=== PATIENT | male | born 1955 | race Caucasian/White ===

== ENCOUNTER → 2023-11-25 08:43 | Outpatient (REF) | payer MEDICARE, OTHER, SELFPAY | LOC: RAD 08:43 | PROVIDERS: ATTENDING PHYSICIAN Internal Medicine Hematology & Oncology; FAMILY PHYSICIAN Internal Medicine | DX: I26.99 Other pulmonary embolism without acute cor pulmonale (principal); C20 Malignant neoplasm of rectum; D64.81 Anemia due to antineoplastic chemotherapy | CPT/HCPCS: 71260; 74177; Q9967 ==

== ENCOUNTER → 2024-02-18 15:49 | Outpatient (REF) | payer MEDICARE, OTHER, SELFPAY ==
[2024-02-18 11:05] LABS: Iron 124 ug/dl (49-181)
[2024-02-18 11:15] LABS: Percent Saturation 44 % (20-50); Total Iron Binding Capacity 279 ug/dl (261-462)
[2024-02-18 12:13] LABS: CEA 2.36 ng/ml
== END ==
LOC: OIDL 15:49
PROVIDERS: ATTENDING PHYSICIAN Internal Medicine Hematology & Oncology
DX: I26.99 Other pulmonary embolism without acute cor pulmonale (principal); C20 Malignant neoplasm of rectum
CPT/HCPCS: 82378; 82728; 83540; 83550

== ENCOUNTER 2024-03-04 07:38 | Outpatient (RCR) | payer MEDICARE, OTHER, SELFPAY ==
[2024-03-04] VITALS (7 sets, daily range): BP systolic 125–139; BP diastolic 72–81
== END 2024-03-14 23:59 | disposition home or self-care (01) ==
LOC: OID 07:38
PROVIDERS: ATTENDING PHYSICIAN Internal Medicine Hematology & Oncology; FAMILY PHYSICIAN Internal Medicine
DX: I26.99 Other pulmonary embolism without acute cor pulmonale (principal); Z79.01 Long term (current) use of anticoagulants
CPT/HCPCS: 36430; 86850; 86900; 86901; 86920; P9016

== ENCOUNTER → 2024-03-24 11:24 | Outpatient (REF) | payer MEDICARE, OTHER, SELFPAY | LOC: RAD 11:24 | PROVIDERS: ATTENDING PHYSICIAN Nurse Practitioner Adult Health; FAMILY PHYSICIAN Internal Medicine; REFERRING PHYSICIAN Internal Medicine Hematology & Oncology | DX: D64.81 Anemia due to antineoplastic chemotherapy (principal); C20 Malignant neoplasm of rectum; I26.99 Other pulmonary embolism without acute cor pulmonale | CPT/HCPCS: 71260; 74177; Q9967 ==

== ENCOUNTER → 2024-04-28 16:03 | Outpatient (REF) | payer MEDICARE, OTHER, SELFPAY ==
[2024-04-28 16:02] LABS: Iron 117 ug/dl (49-181)
[2024-04-28 16:11] LABS: Percent Saturation 43 % (20-50); Total Iron Binding Capacity 272 ug/dl (261-462)
[2024-04-28 16:37] LABS: CEA 3.04 ng/ml
[2024-04-28 17:10] LABS: Folate 12.5 ng/ml (2.76-20); Vitamin B12 > 1000 pg/ml (239-931)
== END ==
LOC: OIDL 16:03
PROVIDERS: ATTENDING PHYSICIAN Nurse Practitioner Adult Health
DX: I26.99 Other pulmonary embolism without acute cor pulmonale (principal); C20 Malignant neoplasm of rectum; D52.9 Folate deficiency anemia, unspecified
CPT/HCPCS: 82378; 82607; 82728; 82746; 83540; 83550

== ENCOUNTER → 2024-05-12 13:59 | Outpatient (REF) | payer MEDICARE, OTHER, SELFPAY ==
[2024-05-12 15:13] LABS: Iron 81 ug/dl (49-181)
[2024-05-12 15:22] LABS: Percent Saturation 29 % (20-50); Total Iron Binding Capacity 277 ug/dl (261-462)
== END ==
LOC: OIDL 13:59
PROVIDERS: ATTENDING PHYSICIAN Internal Medicine Hematology & Oncology
DX: I26.99 Other pulmonary embolism without acute cor pulmonale (principal); C20 Malignant neoplasm of rectum
CPT/HCPCS: 82728; 83540; 83550

== ENCOUNTER → 2024-05-26 15:52 | Outpatient (REF) | payer MEDICARE, OTHER, SELFPAY ==
[2024-05-26 14:12] LABS: % Basophils 0.7 % (0-2); % Eosinophils 0.7 % (0-6); % Immature Granulocytes 0.4 % (0-0.5); % Lymphocytes 37.6 % (20.5-51.1); % Monocytes 7.4 % (1.7-9.3); % Neutrophils 53.2 % (42.2-75.2); Absolute Monocytes 0.2 10^3/uL (0.1-0.6); Absolute Neutrophils 1.4 10^3/uL (1.4-6.5); Hematocrit 25.5 % (39.0-52.0); Hemoglobin 8.7 g/dL (13.0-18.0); Mean Corp Hgb Conc. 34.1 g/dL (33.0-37.0); Mean Corpuscular Hgb 38.5 pg (27.0-31.0); Mean Corpuscular Volume 112.8 fL (80.0-94.0); Mean Platelet Volume 11.5 fL (7.4-10.4); Platelet Count 79 10^3/uL (130-400); Red Blood Cell Count 2.26 10^6/uL (4.70-6.10); White Blood Cell Count 2.7 10^3/uL (4.8-10.8)
[2024-05-26 14:52] LABS: ALT (SGPT) 20 U/L (0-50); AST (SGOT) 26 U/L (17-59); Albumin 3.8 g/dl (3.5-5.0); Alkaline Phosphatase 81 U/L (38-126); Blood Urea Nitrogen 18 mg/dl (9-20); Calcium 8.9 mg/dl (8.4-10.2); Carbon Dioxide 25 mmol/L (22-30); Chloride 108 mmol/L (98-107); Glucose 117 mg/dl (70-99); Potassium 3.7 mmol/L (3.5-5.1); Sodium 141 mmol/L (135-145); Total Bilirubin 0.8 mg/dl (0.2-1.3); Total Protein 6.4 g/dl (6.3-8.2); eGFR > 60.00
== END ==
LOC: OIDL 15:52
PROVIDERS: ATTENDING PHYSICIAN Internal Medicine Hematology & Oncology
DX: I26.99 Other pulmonary embolism without acute cor pulmonale (principal)
CPT/HCPCS: 80053; 85025

== ENCOUNTER → 2024-05-28 08:39 | Outpatient (REF) | payer MEDICARE, OTHER, SELFPAY | LOC: HWRAD 08:39 | PROVIDERS: ATTENDING PHYSICIAN Internal Medicine Hematology & Oncology; FAMILY PHYSICIAN Internal Medicine | DX: D52.9 Folate deficiency anemia, unspecified (principal); C20 Malignant neoplasm of rectum | CPT/HCPCS: 71260; 74177; Q9967 ==

== ENCOUNTER → 2024-07-21 15:52 | Outpatient (REF) | payer MEDICARE, OTHER, SELFPAY ==
[2024-07-21 14:36] LABS: CEA 6.94 ng/ml
== END ==
LOC: OIDL 15:52
PROVIDERS: ATTENDING PHYSICIAN Nurse Practitioner Acute Care
DX: I26.99 Other pulmonary embolism without acute cor pulmonale (principal); C20 Malignant neoplasm of rectum
CPT/HCPCS: 82378

== ENCOUNTER → 2024-08-04 14:50 | Outpatient (REF) | payer MEDICARE, OTHER, SELFPAY ==
[2024-08-04 12:30] LABS: % Basophils 0.3 % (0-2); % Eosinophils 0.7 % (0-6); % Lymphocytes 35.3 % (20.5-51.1); % Monocytes 7.2 % (1.7-9.3); % Neutrophils 56.5 % (42.2-75.2); Absolute Lymphocytes 1.1 10^3/uL (1.2-3.4); Absolute Monocytes 0.2 10^3/uL (0.1-0.6); Absolute Neutrophils 1.7 10^3/uL (1.4-6.5); Mean Corp Hgb Conc. 33.3 g/dL (33.0-37.0); Mean Corpuscular Hgb 38.5 pg (27.0-31.0); Mean Corpuscular Volume 115.4 fL (80.0-94.0); Mean Platelet Volume 11.8 fL (7.4-10.4); Platelet Count 85 10^3/uL (130-400); Red Blood Cell Count 1.82 10^6/uL (4.70-6.10); Red Cell Dist. Width 16.1 % (11.5-14.5); White Blood Cell Count 3.1 10^3/uL (4.8-10.8)
[2024-08-04 14:04] LABS: Iron 60 ug/dl (49-181)
[2024-08-04 14:14] LABS: Percent Saturation 21 % (20-50); Total Iron Binding Capacity 283 ug/dl (261-462)
[2024-08-04 14:30] LABS: CEA 8.03 ng/ml
== END ==
LOC: OIDL 14:50
PROVIDERS: ATTENDING PHYSICIAN Internal Medicine Hematology & Oncology
DX: I26.99 Other pulmonary embolism without acute cor pulmonale (principal); C20 Malignant neoplasm of rectum; D52.9 Folate deficiency anemia, unspecified
CPT/HCPCS: 82378; 82728; 83540; 83550; 85025

== ENCOUNTER → 2024-08-18 15:43 | Outpatient (REF) | payer MEDICARE, OTHER, SELFPAY ==
[2024-08-18 13:38] LABS: % Basophils 0.3 % (0-2); % Eosinophils 0.5 % (0-6); % Immature Granulocytes 0.3 % (0-0.5); % Monocytes 7.4 % (1.7-9.3); % Neutrophils 66.5 % (42.2-75.2); Absolute Lymphocytes 1.6 10^3/uL (1.2-3.4); Absolute Monocytes 0.5 10^3/uL (0.1-0.6); Absolute Neutrophils 4.4 10^3/uL (1.4-6.5); Hematocrit 26.1 % (39.0-52.0); Hemoglobin 8.3 g/dL (13.0-18.0); Mean Corp Hgb Conc. 31.8 g/dL (33.0-37.0); Mean Corpuscular Hgb 36.9 pg (27.0-31.0); Mean Platelet Volume 10.4 fL (7.4-10.4); Platelet Count 219 10^3/uL (130-400); Red Blood Cell Count 2.25 10^6/uL (4.70-6.10); Red Cell Dist. Width 15.5 % (11.5-14.5); White Blood Cell Count 6.5 10^3/uL (4.8-10.8)
== END ==
LOC: OIDL 15:43
PROVIDERS: ATTENDING PHYSICIAN Internal Medicine Hematology & Oncology
DX: I26.99 Other pulmonary embolism without acute cor pulmonale (principal)
CPT/HCPCS: 85025

== ENCOUNTER 2024-12-13 12:55 | Outpatient (RCR) | payer MEDICARE, OTHER, SELFPAY | END 2024-12-13 23:59 | disposition home or self-care (01) | LOC: OID 12:55 | PROVIDERS: ATTENDING PHYSICIAN Internal Medicine Hematology & Oncology; FAMILY PHYSICIAN Internal Medicine | DX: I26.99 Other pulmonary embolism without acute cor pulmonale (principal); C20 Malignant neoplasm of rectum; D64.81 Anemia due to antineoplastic chemotherapy; D51.9 Vitamin B12 deficiency anemia, unspecified; D75.89 Other specified diseases of blood and blood-forming organs | CPT/HCPCS: 36415; 85025; 86850; 86900; 86901; 86920 ==

== ENCOUNTER 2024-12-28 08:22 | Outpatient (RCR) | payer MEDICARE, OTHER, SELFPAY ==
[2024-12-13 13:53] LABS: % Basophils 0.4 % (0-2); % Eosinophils 0.4 % (0-6); % Immature Granulocytes 0.4 % (0-0.5); % Neutrophils 66.8 % (42.2-75.2); Absolute Monocytes 0.5 10^3/uL (0.1-0.6); Absolute Neutrophils 3.1 10^3/uL (1.4-6.5); Mean Corp Hgb Conc. 31.9 g/dL (33.0-37.0); Mean Corpuscular Hgb 32.6 pg (27.0-31.0); Mean Corpuscular Volume 102.2 fL (80.0-94.0); Platelet Count 159 10^3/uL (130-400); Red Blood Cell Count 1.84 10^6/uL (4.70-6.10); Red Cell Dist. Width 19.2 % (11.5-14.5); White Blood Cell Count 4.6 10^3/uL (4.8-10.8)
[2024-12-13 14:02] LABS: Hematocrit 18.8 % (39.0-52.0)
[2024-12-15 08:51] VITALS: BP 116/71
[2024-12-15 09:09] VITALS: BP 108/63
[2024-12-15 10:51] VITALS: BP 108/64
[2024-12-15] MEDS: CATHFLO/ACTIVASE 2 MG INTRACATH (11:43)
[2024-12-22 14:48] LABS: % Basophils 0.1 % (0-2); % Eosinophils 0.4 % (0-6); % Immature Granulocytes 0.4 % (0-0.5); % Lymphocytes 15.1 % (20.5-51.1); % Monocytes 8.1 % (1.7-9.3); % Neutrophils 75.9 % (42.2-75.2); Absolute Lymphocytes 1.1 10^3/uL (1.2-3.4); Absolute Monocytes 0.6 10^3/uL (0.1-0.6); Absolute Neutrophils 5.6 10^3/uL (1.4-6.5); Mean Corp Hgb Conc. 30.5 g/dL (33.0-37.0); Mean Corpuscular Hgb 30.6 pg (27.0-31.0); Mean Corpuscular Volume 100.5 fL (80.0-94.0); Mean Platelet Volume 9.8 fL (7.4-10.4); Platelet Count 178 10^3/uL (130-400); Red Blood Cell Count 2.09 10^6/uL (4.70-6.10); Red Cell Dist. Width 18.9 % (11.5-14.5); White Blood Cell Count 7.4 10^3/uL (4.8-10.8)
[2024-12-22 14:56] LABS: Hemoglobin 6.4 g/dL (13.0-18.0)
[2024-12-23 09:20] VITALS: BP 126/73
[2024-12-23 09:42] VITALS: BP 126/73
[2024-12-23 09:59] VITALS: BP 104/59
[2024-12-23 12:03] VITALS: BP 102/62
[2024-12-27 13:46] LABS: % Basophils 0.2 % (0-2); % Eosinophils 0.4 % (0-6); % Immature Granulocytes 0.3 % (0-0.5); % Lymphocytes 13.6 % (20.5-51.1); % Monocytes 6.4 % (1.7-9.3); % Neutrophils 79.1 % (42.2-75.2); Absolute Lymphocytes 1.3 10^3/uL (1.2-3.4); Absolute Monocytes 0.6 10^3/uL (0.1-0.6); Absolute Neutrophils 7.5 10^3/uL (1.4-6.5); Hematocrit 24.3 % (39.0-52.0); Hemoglobin 7.6 g/dL (13.0-18.0); Mean Corp Hgb Conc. 31.3 g/dL (33.0-37.0); Mean Corpuscular Hgb 30.4 pg (27.0-31.0); Mean Corpuscular Volume 97.2 fL (80.0-94.0); Mean Platelet Volume 9.5 fL (7.4-10.4); Platelet Count 162 10^3/uL (130-400); Red Cell Dist. Width 17.6 % (11.5-14.5); White Blood Cell Count 9.4 10^3/uL (4.8-10.8)
[2024-12-28 08:58] VITALS: BP 128/81
[2024-12-28 09:11] VITALS: BP 128/81
[2024-12-28 09:19] VITALS: BP 120/62
[2024-12-28 11:10] VITALS: BP 117/74
== END 2025-01-12 23:59 | disposition home or self-care (01) ==
LOC: OID 08:22
PROVIDERS: ATTENDING PHYSICIAN Internal Medicine Hematology & Oncology; FAMILY PHYSICIAN Internal Medicine
DX: C20 Malignant neoplasm of rectum (principal); I26.99 Other pulmonary embolism without acute cor pulmonale (principal); D64.81 Anemia due to antineoplastic chemotherapy; D51.9 Vitamin B12 deficiency anemia, unspecified; Z79.01 Long term (current) use of anticoagulants; D75.89 Other specified diseases of blood and blood-forming organs
CPT/HCPCS: 36415; 36430; 85025; 86850; 86900; 86901; 86920; J2997; P9016